=== PATIENT | female | born 1960 | race Caucasian/White ===

== ENCOUNTER 2017-05-14 17:14 | Emergency (ER) | payer MEDICARE, OTHER ==
[~2017-05-14] VITALS: Ht 213.4 cm; Wt 52.2 kg
--- NOTE | 2017-05-14 17:26 | NUR ---
Patient moved from room 3 to room 4A per hairspring setter Grace.
--- NOTE | 2017-05-14 17:36 | NUR ---
Patient is eating dinner tray with good appetite, intermittently yelling & cursing in ER, respiration:easy, VEG[place], monitored closely
--- NOTE | 2017-05-14 18:25 | NUR ---
After eating 90% of the dinner tray, pt is more cooperative, AOx4,
--- NOTE | 2017-05-14 18:30 | NUR ---
For discharge when sober, patient is resting comfortably in bed with eyes closed. PATIENT IS PAIN FREE AT THIS TIME.
--- NOTE | 2017-05-14 19:11 | NUR ---
Hands off report given to DINO Longo.
--- NOTE | 2017-05-14 19:15 | NUR ---
RECIEVED REPORT FROM DINO ALEX. PT IN BED. PT RESTING WITH EYES CLOSED. O2 SAT WAS 89%. NASAL CANULA APPLIED WITH 2 LT. MD NOTIFIED. NO SIGNS OF DISTRESS WITNESSED AT THIS TIME.
--- NOTE | 2017-05-14 20:07 | NUR ---
PT REFUSES MEDICAL CARE. AWARE.
--- NOTE | 2017-05-14 20:20 | NUR ---
PT YELLING PROFANITY AND THREATENING STAFF. PT'S BED WAS MOVED TO HALLWAY. PT'S ASSISTED OUTSIDE. BELONGINGS WERE CARRIED OUTSIDE. PT LEFT AMBULATORY WITH STEADY GAIT. HOUSE SUP AWARE.
--- NOTE | 2017-05-14 20:25 | NUR ---
[employer] ARRIVE FOR PT
[2017-05-14 20:46] VITALS: BP 86/51
== END 2017-05-14 20:25 | disposition home or self-care (01) ==
LOC: ER 18:58
DX: F10.129 Alcohol abuse with intoxication, unspecified (principal)
CPT/HCPCS: A4663

== ENCOUNTER 2017-05-15 06:19 | Emergency (ER) | payer MEDICARE, OTHER ==
[~2017-05-15] VITALS: Ht 165.1 cm; Wt 54.4 kg
--- NOTE | 2017-05-15 07:37 | NUR ---
Patient discharged to home in stable conditon. Written and verbal after care instructions given. Patient verbalizes understanding of instructions.pt walks in steady gait.
[2017-05-15 07:38] VITALS: BP 131/66
== END 2017-05-15 07:39 | disposition home or self-care (01) ==
LOC: ER 06:28
DX: F10.129 Alcohol abuse with intoxication, unspecified (principal); Z59.0 Homelessness
CPT/HCPCS: A4663

== ENCOUNTER 2017-06-29 20:08 | Emergency (ER) | payer MEDICARE, OTHER ==
[~2017-06-29] VITALS: Ht 162.6 cm; Wt 68.0 kg
--- NOTE | 2017-06-29 20:10 | NUR ---
pt bib RA [id number]. aox3 per pt had 1/2 pint of vodka today. picked up from the streets per rescue. pt with RLQ ostomy, stoma is pink, moist and intact. pt in no acute distress. respirations are clear and equal, no respiratory distress.
--- NOTE | 2017-06-29 22:30 | NUR ---
pt refusing blood draw
--- NOTE | 2017-06-29 23:00 | NUR ---
Patient is resting comfortably in bed with eyes closed
--- NOTE | 2017-06-30 02:00 | NUR ---
Patient is resting comfortably in bed with eyes closed. in no acute distress
--- NOTE | 2017-06-30 06:21 | NUR ---
Patient is resting comfortably in bed with eyes closed. in no acute distress
--- NOTE | 2017-06-30 07:08 | NUR ---
pt endorsed to day shift RN.
--- NOTE | 2017-06-30 07:19 | NUR ---
PT IS IN ROOM #1A. PT IS RESTING IN BED COMFORTABLY. NO S/S OF DISTRESS AT THIS TIME.
--- NOTE | 2017-06-30 07:28 | NUR ---
PT WAS D/C TO HOME. D/C INSTRUCTIONS GIVEN TO THE PT. GAIT IS STABLE. NO S/S OF DISTRESS AT THIS TIME.
[2017-06-30 07:30] VITALS: BP 141/79
== END 2017-06-30 07:31 | disposition home or self-care (01) ==
LOC: ER 20:10
DX: F10.10 Alcohol abuse, uncomplicated (principal); Z59.0 Homelessness
CPT/HCPCS: A4663

== ENCOUNTER 2017-08-17 02:43 | Emergency (ER) | payer MEDICARE, OTHER ==
[~2017-08-17] VITALS: Ht 167.6 cm; Wt 66.2 kg
--- NOTE | 2017-08-17 03:00 | NUR ---
PATIENT AMBULAING WITH UNSTEADY GAIT IN ROOM, SLURRING SPEECH. A/OX2. PROVIDED SAFETY MEASURE
[2017-08-17] MEDS: IV NS 1000 ML 1,000 ML IV ONE ×2 (03:05→03:43)
[2017-08-17 03:14] LABS: BASOPHILS # (AUTO) 0.1 K/uL (0.0-8.0); BASOPHILS % (AUTO) 0.8 % (0.0-2.0); EOSINOPHILS # (AUTO) 0.1 K/uL (0.0-0.7); EOSINOPHILS % (AUTO) 0.9 % (0.0-7.0); HEMATOCRIT 40.8 % (31.2-41.9); LYMPHOCYTES # (AUTO) 4.7 K/uL (20.0-40.0); LYMPHOCYTES % (AUTO) 69.3 % (20.5-51.5); MEAN CORPUSCULAR HEMOGLOBIN 32.6 uug (24.7-32.8); MEAN CORPUSCULAR HGB CONC 34 g/dL (32.3-35.6); MEAN CORPUSCULAR VOLUME 95.4 fL (75.5-95.3); MONOCYTES # (AUTO) 0.4 K/uL (2.0-10.0); NEUTROPHILS # (AUTO) 1.6 K/uL (1.8-8.9); PLATELET COUNT (AUTO) 101 K/uL (179-408); RED BLOOD CELL COUNT(AUTO) 4.28 MIL/uL (3.63-4.92); WHITE BLOOD COUNT (AUTO) 6.8 K/uL (3.8-11.8)
--- NOTE | 2017-08-17 03:15 | NUR ---
PATIENT REFUSED TO HAVE EKG DONE. DR BLANDON AWARE
[2017-08-17 03:20] LABS: CREATININE 0.6 mg/dL (0.6-1.3); POTASSIUM 4.2 mmol/L (3.5-5.1)
[2017-08-17 03:26] LABS: BILIRUBIN,TOTAL 0.5 mg/dL (0.2-1.0); TOTAL PROTEIN, SERUM 8.6 g/dL (6.4-8.2)
--- NOTE | 2017-08-17 03:43 | NUR ---
PATIENT CALM. INSERTED HEP LOCK ORDERED. EKG DONE
[2017-08-17 04:21] LABS: LYMPHOCYTES % (MANUAL) 70 % (20-40); MONOCYTES % (MANUAL) 4 % (2-10); NEUTROPHILS % (MANUAL) 19 % (42-75)
[2017-08-17] MEDS ORDERED: IV NS 1000 ML 1,000 ML IV ONE (04:30)
--- NOTE | 2017-08-17 07:10 | NUR ---
RECEIVED PT FROM DINO LING, PT ASLEEP,CONNECTED TO MOLD FILLING OPERATOR, HOOKED ON N/S VIA RT HAND IV LINE.
--- NOTE | 2017-08-17 09:00 | NUR ---
PATIENT AWAKE WAS GIVE FOOD AND DRINK FEELS BETTER WAS TOLD SHE CAN BE DC AND IF NEED A BUS TOKEN PATIENT REFUSED. COLOSTOMY INTACT.
[2017-08-17 09:09] VITALS: BP 135/71
--- NOTE | 2017-08-17 09:09 | NUR ---
Patient discharged to home in stable conditon. Written and verbal after care instructions given. Patient verbalizes understanding of instructions. Refused to sign papers. Security assisted patient to lobby.
== END 2017-08-17 09:10 | disposition home or self-care (01) ==
LOC: ER 02:46
DX: F10.10 Alcohol abuse, uncomplicated (principal); E86.9 Volume depletion, unspecified; R94.5 Abnormal results of liver function studies; Z59.0 Homelessness
CPT/HCPCS: 36415; 71045; 74021; 80053; 82550; 84484; 85025; 85610; 93005; 99285; A4663; G0480; J7030; 70030-TC

== ENCOUNTER 2018-02-08 17:14 | Emergency (ER) | payer MEDICARE, OTHER ==
[~2018-02-08] VITALS: Ht 167.6 cm; Wt 65.8 kg
--- NOTE | 2018-02-08 17:43 | NUR ---
BIB EMS. PATIENT WAS CLEANED UP AND COLOSTOMY BAG WAS CHANGED. PATIENT IS AMBULATORY WITH STEADY GAIT. DC and follow up instructions given and explained to patient who states she understands all instructions
== END 2018-02-08 17:48 | disposition home or self-care (01) ==
LOC: ER 17:16
DX: K94.03 Colostomy malfunction (principal); F10.10 Alcohol abuse, uncomplicated; Z59.0 Homelessness
CPT/HCPCS: A4663

== ENCOUNTER 2018-02-09 13:44 | Emergency (ER) | payer MEDICARE, OTHER ==
[~2018-02-09] VITALS: Ht 160 cm; Wt 58.5 kg
--- NOTE | 2018-02-09 14:21 | NUR ---
PT IS IN ROOM #1A. DR HARE EVALUATED THE PT.
--- NOTE | 2018-02-09 16:01 | NUR ---
PT WAS D/C TO HOME. D/C INSTRUCTIONS GIVEN TO THE PT.
[2018-02-09 16:02] VITALS: BP 136/84
== END 2018-02-09 16:03 | disposition home or self-care (01) ==
LOC: ER 13:44
DX: F10.10 Alcohol abuse, uncomplicated (principal); Z59.0 Homelessness
CPT/HCPCS: A4663

== ENCOUNTER 2018-02-10 04:15 | Emergency (ER) | payer MEDICARE, OTHER ==
[~2018-02-10] VITALS: Ht 162.6 cm; Wt 64.0 kg
--- NOTE | 2018-02-10 04:29 | NUR ---
PT IS IN ROOM #5. DR ALEXANDRA EVALUATED THE PT.PT ATE BREACFAST AND IS SLEEPING AT THIS TIME.
--- NOTE | 2018-02-10 04:58 | NUR ---
Patient given written and verbal discharge instructions. Patient verbalizes understanding of instructions. Patient is ambulatory with steady gait. Refuses offer of long-term placement. Patient given list of available shelters in surrounding area.
--- NOTE | 2018-02-10 08:36 | NUR ---
Patient ambulated back with steady gait to our main ER department. She does not want to see another ER doctor but wants to have a new colostomy bag. DINO You went to 2nd floor and got a new colostomy bag. staff mine warfare officer, nursing blood bank supervisor and charge lpn Grace notified.
--- NOTE | 2018-02-10 08:58 | NUR ---
Donated old pair of gym shoes was provided by our application security specialist to this patient. Patient left ER with brisk steady gait.
== END 2018-02-10 04:59 | disposition home or self-care (01) ==
LOC: ER 04:16
DX: F10.10 Alcohol abuse, uncomplicated (principal); F17.200 Nicotine dependence, unspecified, uncomplicated; Z59.0 Homelessness
CPT/HCPCS: A4663

== ENCOUNTER 2020-08-04 09:56 | Emergency (ER) | payer MEDICARE, OTHER ==
[~2020-08-04] VITALS: Ht 170.2 cm; Wt 57.2 kg
[2020-08-04] MEDS ORDERED: IV NORMAL SALINE 1000 ML BAG IV ONE (10:00)
--- NOTE | 2020-08-04 10:19 | NUR ---
PT IS IN BED #1B. DR MCGILL EVALUATED THE PT.
--- NOTE | 2020-08-04 10:54 | NUR ---
[facility]: This SW spoke with Fela mayfield ([phone]) who stated that patient's case has been closed and she is not conserved or has a public guardian. Case has been terminated.
[2020-08-04 11:37] LABS: BASOPHILS % (AUTO) 0.2 % (0.0-2.0); HEMATOCRIT 44.2 % (31.2-41.9); HEMOGLOBIN 14.9 g/dL (10.9-14.3); LYMPHOCYTES # (AUTO) 3.8 K/uL (20.0-40.0); LYMPHOCYTES % (AUTO) 41.6 % (20.5-51.5); MEAN CORPUSCULAR HGB CONC 34 g/dL (32.3-35.6); MONOCYTES # (AUTO) 0.5 K/uL (2.0-10.0); MONOCYTES % (AUTO) 5.5 % (0.0-11.0); NEUTROPHILS # (AUTO) 4.8 K/uL (1.8-8.9); NEUTROPHILS % (AUTO) 52.7 % (38.5-71.5); PLATELET COUNT (AUTO) 150 K/uL (179-408); RED BLOOD CELL COUNT(AUTO) 4.65 MIL/uL (3.63-4.92); WHITE BLOOD COUNT (AUTO) 9.1 K/uL (3.8-11.8)
[2020-08-04 11:38] LABS: CARBON DIOXIDE 21 mmol/L (21-32); CHLORIDE 98 mmol/L (98-107); CREATININE 0.4 mg/dL (0.6-1.3); GLUCOSE 92 mg/dL (74-106); POTASSIUM 3.3 mmol/L (3.5-5.1); UREA NITROGEN, BLOOD 7 mg/dL (7-18)
[2020-08-04 11:42] LABS: ETHANOL 288 MG/DL (0-0)
[2020-08-04 11:52] LABS: ALANINE AMINOTRANSFERASE 134 U/L (14-59); ALKALINE PHOSPHATASE 86 U/L (50-136); ASPARTATE AMINOTRANSFERASE 149 U/L (15-37); BILIRUBIN,DIRECT 0.2 mg/dL (0.0-0.2); BILIRUBIN,TOTAL 0.5 mg/dL (0.2-1.0); TOTAL PROTEIN, SERUM 7.4 g/dL (6.4-8.2)
[2020-08-04 11:59] LABS: ACETAMINOPHEN < 2.0 ug/mL (10-30)
--- NOTE | 2020-08-04 13:15 | NUR ---
Electrical Engineering Intern Consultation: Electrical Engineering Intern consultation requested. This CRIMINAL JUSTICE INSTRUCTOR met with Dr. Montana and DINO Dueñas to discuss patient's needs. Per ED physicians notes, patient was brought in by ambulance after being found sleeping on the side of the street with a half empty bottle of vodka next to her. A bystander called an ambulance, and patient was transferred to the ED. This CRIMINAL JUSTICE INSTRUCTOR met with the patient bedside in the ED. Patient was initially asleep, difficult to arouse, however after calling her name a few times, patient woke up. Patient is a 60 year old female. Patient is uncertain of her location, stating dont I live here? This CRIMINAL JUSTICE INSTRUCTOR oriented patient to the fact that patient was in the emergency room. Patient stated that she used to live in [place], however now I live on [place]. This CRIMINAL JUSTICE INSTRUCTOR inquired if patient was homeless and patient stated who said I was homeless, however was unable to provide definitive information on place of residence. Patient appears unkempt, intermittently closing her eyes during this interview. Patient reports frequent use of alcohol, however could not provide specific information on frequency and quantity. Patient denied use of drugs, but reported smoking about 1 pack of cigarettes per day. Patient denies SI and HI. No hallucinations. Patient is known to this hospital from previous hospitalizations and ED visits. Patients medical hx includes colostomy placement. Patient was previously conserved, however after confirming with [facility], patient is no longer conserved and her case was closed (see previous SS note). This CRIMINAL JUSTICE INSTRUCTOR offered patient homeless community resources and discussed discharge plans with this patient. Patient was receptive to the community resources, and stated she would like to return to her previous living arrangement. This CRIMINAL JUSTICE INSTRUCTOR provided patient with the homeless resource packet. Patient signed the homeless patient waiver form. Patient was provided with a meal. Patient stated she did not need any transportation resources, as she prefers to walk. This CRIMINAL JUSTICE INSTRUCTOR informed Dr. Montana and DINO Dueñas of above. No further SS interventions needed at this time. Resources provided: SW provided the homeless resource packet to the patient, which includes the following information: a list of year round shelters [place] [address], ; [facility] [address] [facility], ; : [facility], ; [facility], [address] [facility]. [place], [address], ; [facility], [facility], [address] [facility] [address] [facility], [address], ; resources for places to go for food, showers, substance abuse treatment, mental health services, community medical clinics, and pharmacies. These include the following: the [facility] homeless directory which provides a list of places that individuals can go to throughout the week for hot meals, sack lunches, food pantries, and showers; a list of mental health clinics: [facility] [address] [place] [address], ; [facility] [address] [place] [address], ; [facility] [address] [place] [address], ; a list of medical clinics: [facility] [address] [facility] [address], [place]. [place], ; [facility] [address] [facility] [place] [place] [address]; [facility] [address] [place] [address], ; and a list of substance abuse programs: [facility] Substance Abuse Self-helpline ; [facility] ; [facility] ; [facility] ; [facility] ; [facility] [phone]; [facility] [phone]. also provided patient with information on locations of pharmacies.
--- NOTE | 2020-08-04 14:22 | NUR ---
PT WAS EVALUATED BY SERGER KATTY. PT SIGNED HOMELESS DISCHARGE FORM. PT REFUSED RESIDENTIAL PLACEMENT. GAIT IS STABLE. NO S/S OF DISTRESS AT THIS TIME. PT WAS D/C'd TO HOME AFTER DR MCGILL RE-EVALUATION.
[2020-08-04 14:25] VITALS: BP 125/77
== END 2020-08-04 14:26 | disposition home or self-care (01) ==
LOC: ER 09:56
DX: F10.229 Alcohol dependence with intoxication, unspecified (principal); Y90.8 Blood alcohol level of 240 mg/100 ml or more; K70.9 Alcoholic liver disease, unspecified; Z59.0 Homelessness; E87.6 Hypokalemia; Z93.3 Colostomy status
CPT/HCPCS: 36415; 70450; 71045; 85025; 93005; A4663; G0480